=== PATIENT | female | born 1995 | race Caucasian/White ===

== ENCOUNTER 2024-02-26 09:45 | Outpatient (CLI) | payer BC, SELFPAY ==
--- NOTE | ~2024-02-26 | US_ITS ---
EXAMINATION: US OB follow up DATE: 02/26/2024 10:07 INDICATION: Encounter for supervision of normal . TECHNIQUE: Real-time ultrasound of the pelvis was performed. COMPARISON: Ultrasound 01/14/2024 FINDINGS: There is a single living fetus in vertex presentation. The placenta is anterior. heart rate is 141 beats per minute (bpm). The amniotic fluid index is 10.4 cm, which is normal. The following biometric data were obtained: Biparietal diameter (BPD): 9.4 cm; head circumference (HC): 33.1 cm; abdominal circumference (AC): 35 .3 cm; femur length (FL): 7.7 cm. These measurements are concordant. Estimated weight is 3634 g +/- 545 g, which correlates with the 77th percentile when 03/08/24 is used as estimated date of delivery. As single measurements, these parameters are each equal to the following estimated gestational ages: BPD: 38 weeks 1 days. HC: 37 weeks 5 days. AC: 39 weeks 2 days. FL: 39 weeks 2 days. estimated gestational age based solely on measurements from this exam is 38 weeks 4 days +/- 2 weeks 5 days. IMPRESSION: 1. Single living fetus in vertex presentation. 2. Estimated weight is 3634 g +/- 545 g, which correlates with the 77th percentile when 4 is used as estimated date of delivery. Reviewed, dictated and finalized at location A. IMPRESSION: 1. Single living fetus in vertex presentation. 2. Estimated weight is 3634 g +/- 545 g, which correlates with the 77th percentile when 03/08/24 is used as estimated date of delivery.
== END 2024-02-26 09:46 ==
LOC: GOSHIMG 09:46
PROVIDERS: Visit Provider Obstetrics & Gynecology
DX: Z34.93 Encounter for supervision of normal pregnancy, unspecified, third trimester (principal); Z3A.38 38 weeks gestation of pregnancy
CPT/HCPCS: 76816

== ENCOUNTER 2024-03-06 19:33 | Inpatient (IN) | payer BC, SELFPAY ==
[2024-03-06] VITALS (15 sets, daily range): BP systolic 117–147; BP diastolic 78–108; PULSE 76–102; BMI 36.3
--- NOTE | 2024-03-06 20:25 | LDADM ---
This patient, Kasey Santoyo, was admitted to Labor/Delivery/Recovery 107 on 03/06/24 at 19:33. Plans for labor, pain management and were discussed with patient. Patient/family oriented to hospital policies and general routines including ID bracelet, bed and alarms, visiting hours, pain management, procedures, bathroom and other care routines, personal items, smoking policy, room service/diet and guest tray routines, infant security routines, and visiting hours. Patient/Family are encouraged to report perceived risks to care and to ask questions if they do not understand what they are told or what they should do. See OBIX for further documentation.
[2024-03-06 20:27] LABS: Basophils Percent Auto 0.4 % (0.2-1.2); Eosinophils Absolute Auto 0.1 K/mm3 (0-0.3); Eosinophils Percent Auto 0.9 % (0-4.4); Hematocrit 34.8 % (37.0-47.0); Hemoglobin 11.9 g/dL (12.0-15.0); Immature Granulocyte Absolute 0.05 K/mm3 (0.00-0.031); Immature Granulocyte Percent A 0.6 % (0-0.5); Lymphocytes Absolute Auto 1.82 K/mm3 (0.9-3.2); Lymphocytes Percent Auto 21.5 % (18.3-44.2); Mean Corpuscular HGB Conc 34.2 g/dl (32-36); Mean Corpuscular Hemoglobin 30.8 pg (26-34); Mean Corpuscular Volume 90.2 fl (80-100); Mean Platelet Volume 9.5 fl (7.4-10.4); Monocytes Absolute Auto 1.1 K/mm3 (0.1-0.6); Neutrophils Absolute Auto 5.4 K/mm3 (1.3-6.7); Neutrophils Percent Auto 63.6 % (45.5-73.1); Platelet Count Result 265 k/mm3 (150-375); Red Blood Count 3.86 M/mm3 (4.2-5.4); Red Cell Distribution Width 12.5 % (11.5-14.5); White Blood Count 8.5 K/mm3 (4.5-10.0)
[2024-03-06 20:45] LABS: Rapid Plasma Reagin Non-Reactive (NonReactive)
[2024-03-06] MEDS: LACTATED RINGERS 1,000 ML 125 ML IV CONT (20:52)
[2024-03-06] MEDS: OXYTOCIN 30 UNITS/NS 500 ML 30 UNITS/500 ML BAG 6 UNITS IV CONT (20:54)
[2024-03-06] MEDS: AMPICILLIN 2 GM/NS 100 ML 2 GM/100 ML BAG IVPB (20:54)
[2024-03-06 21:15] LABS: HIV 1/2 Ab P24 Ag Result Negative (Negative)
--- NOTE | 2024-03-06 21:16 | PM.IMHP ---
H&P: HPI History of Present Illness Date/Time: 03/06/24 21:16 Chief Complaint: leakage of fluid Narrative: Kasey is a 28yo @ 39.5wks who presented to L&D with complaints of leakage of fluid at 1830, clear. She denies contractions, vaginal bleeding. She reports good movement. She has has regular care. Her is complicated by: - GBS positive Review of Systems Constitutional: Constitutional: Denies chills, Denies fever(s) and Denies headache(s) Eyes: Eyes: Denies change in vision ENT: Denies headache(s) Cardiovascular: Cardiovascular: Denies chest pain and Denies dyspnea Respiratory: Respiratory: Denies dyspnea Genitourinary: Genitourinary: Denies abnormal vaginal bleeding and Reports vaginal discharge Neurologic: Denies headache(s) Psychiatric: Psychiatric: Denies anxiety and Denies depression [facility] Past Medical History Medical History Encounter for IUD insertion (10/27/19) Khadra insertion Encounter for IUD removal Surgical History Surgical History History of gynecological procedure (11/25/22) khadra iud removal Family History Family History Other Breast cancer maternal uncle Father Hypertension Mother Cataract Sibling Seizures Social History Social History Smoking status: Never smoker Second hand tobacco smoke exposure: No Alcohol intake: former Drinks per week: 2 Substance use: never Substance use type: does not use Do You Feel Safe in your Home?: Yes Lack of Transportation: No Lack of Food: Never True Current Housing: I Have Housing Concerned About Future Housing: No Difficulty Paying Gas/Electric Bills: No Difficulty Paying for Meds: No Currently Unemployed: No Education: Master's Degree or Higher Difficulty w/ Childcare or Family Care: No Living arrangements: other Additional living arrangements comments: Occupation/Education: occupation Additional occupation/education comments: Teacher Gender identity (if verbalized by the patient): Female Sexual Orientation (if Verbalized by the Patient): Straight or Heterosexual Spiritual care concerns: No Meds Home Medications and Allergies Home Medications Medication Instructions Recorded Confirmed Type cetirizine 10 mg capsule (Zyrtec) 10 mg PO DAILY PRN 11/20/22 03/02/24 History vits no.126-ferrous fum tablet PO 08/01/23 03/02/24 History 28 mg iron-folic acid 800 mcg tablet (Classic ) famotidine 20 mg tablet (Pepcid) 20 mg PO QHS 01/07/24 03/02/24 History Allergies Allergy/AdvReac Type Severity Reaction Status Date / Time walnut Allergy Itching Verified 03/02/24 14:01 Vital Signs Vital Signs - 24 hr 03/06/24 20:17 03/06/24 20:31 03/06/24 20:46 Pulse Rate 90 102 H 80 Blood Pressure 128/88 134/93 H 129/88 Oxygen Delivery 03/06/24 19:35 Pulse Rate Blood Pressure Oxygen Delivery Room Air Exam Const: General: cooperative, healthy appearing, comfortable, no acute distress and obese Nutritional Appearance: obese Orientation/consciousness: patient oriented x3 Resp: Effort & Inspection: normal respiratory effort Cardio: Rate: regular rate GI: GI Palp: No abdominal tenderness : Other: FHT's: 130's/ mod vonnie/ + accels/ no decels - cat 1 TOCO: irregualr ctxs Cervix: 2.5/50/-2 Membranes: SROM, clear 1830 Presentation: cephalic Skin: General skin exam: normal color Neuro: General: patient oriented x3 Extrem: General: normal to inspection Psych: Appearance: grossly normal Affect: normal affect Attitude: cooperative H&P: Results Labs Labs: Short CBC 03/06/24 Range/Units 20:21 WBC 8.5 (4.5-10.0) K/mm3 Hgb 11.9 L (12.0-15.0) g/dL Hct 34.8
[2024-03-07] VITALS (135 sets, daily range): BP systolic 114–169; BP diastolic 62–135; PULSE 76–188; RESP 16–18; TEMP 36.3–37.9; O2SAT 93–100
--- NOTE | 2024-03-07 00:34 | WPDANESEPP ---
Anes - Eval Pre Procedure Procedure: labor epidural Date/Time: 03/07/24 00:34 Pre Op Diagnosis: IOL Patient Data Age: 28 Gender: F Height: 1.63 m Weight: 96 kg Last Vital Signs Pulse 87 03/07/24 00:31 BP 123/86 03/07/24 00:31 Pulse Ox 96 03/07/24 00:33 O2 Del Method Room Air 03/06/24 19:35 Allergies Allergy/AdvReac Type Severity Reaction Status Date / Time walnut Allergy Itching Verified 03/02/24 14:01 Home Medications Medication Instructions Recorded Confirmed Type cetirizine 10 mg capsule (Zyrtec) 10 mg PO DAILY PRN 11/20/22 03/02/24 History vits no.126-ferrous fum tablet PO 08/01/23 03/02/24 History 28 mg iron-folic acid 800 mcg tablet (Classic ) famotidine 20 mg tablet (Pepcid) 20 mg PO QHS 01/07/24 03/02/24 History Laboratory Tests 03/06/24 03/06/24 20:19 20:21 WBC 8.5 K/mm3 (4.5-10.0) RBC 3.86 L M/mm3 (4.2-5.4) Hgb 11.9 L g/dL (12.0-15.0) Hct 34.8 L % (37.0-47.0) MCV 90.2 fl (80-100) MCH 30.8 pg (26-34) MCHC 34.2 g/dl (32-36) RDW 12.5 % (11.5-14.5) Plt Count 265 k/mm3 (150-375) MPV 9.5 fl (7.4-10.4) Immature Gran % (Auto) 0.6 H % (0-0.5) Neut % (Auto) 63.6 % (45.5-73.1) Lymph % (Auto) 21.5 % (18.3-44.2) [place] % (Auto) 13.0 H % (2.6-8.5) Eos % (Auto) 0.9 % (0-4.4) Baso % (Auto) 0.4 % (0.2-1.2) Lymph # (Auto) 1.82 K/mm3 (0.9-3.2) [place] # (Auto) 1.1 H K/mm3 (0.1-0.6) Eos # (Auto) 0.1 K/mm3 (0-0.3) Baso # (Auto) 0.0 K/mm3 (0.0-0.1) Abs Immat Gran (auto) 0.05 H K/mm3 (0.00-0.031) Absolute Neuts (auto) 5.4 K/mm3 (1.3-6.7) Absolute Nucleated RBC 0.000 K/mm3 (0.0-0.012) Nucleated RBC % 0.0 % (0.0-0.2) RPR Non-reactive (NonReactive) HIV 1&2 Ab/P24 Ag 4thGn Negative (Negative) Blood Type O Positive Antibody Screen Negative Patient hx anesthesia problems: none Family hx anesthesia problems: none Results Review: All pre-operative results and documents have been reviewed as part of the pre-operative evaluation. [facility] Past Medical History Medical History Encounter for IUD insertion (10/27/19) Dariusz insertion Encounter for IUD removal Surgical History Surgical History History of gynecological procedure (11/25/22) dariusz iud removal Family History Family History Other Breast cancer maternal uncle Father Hypertension Mother Cataract Sibling Seizures Social History Social History Smoking status: Never smoker Second hand tobacco smoke exposure: No Alcohol intake: former Drinks per week: 2 Substance use: never Substance use type: does not use Do You Feel Safe in your Home?: Yes Lack of Transportation: No Lack of Food: Never True Current Housing: I Have Housing Concerned About Future Housing: No Difficulty Paying Gas/Electric Bills: No Difficulty Paying for Meds: No Currently Unemployed: No Education: Master's Degree or Higher Difficulty w/ Childcare or Family Care: No Living arrangements: other Additional living arrangements comments: Occupation/Education: occupation Additional occupation/education comments: Teacher Gender identity (if verbalized by the patient): Female Sexual Orientation (if Verbalized by the Patient): Straight or Heterosexual Spiritual care concerns: No Exam Day of Procedure 03/07/24 00:34 Patient weight: obese Heart: regular rate and rhythm Lungs: normal air movement Airway: Mallampati scale Neurological: alert and oriented
[2024-03-07] MEDS: LACTATED RINGERS 1,000 ML 125 ML IV CONT (00:45)
[2024-03-07] MEDS: AMPICILLIN 1 GM/NS 50 ML 1 GM/50 ML BAG IVPB (01:29)
[2024-03-07] MEDS: FAMOTIDINE 20 MG/2 ML VIAL IV PUSH (02:14)
[2024-03-07] MEDS: miSOPROStol 200 MCG TABLET 800 MCG RECTAL (07:45)
[2024-03-07] MEDS: OXYTOCIN 30 UNITS/NS 500 ML 30 UNITS/500 ML BAG 125 UNITS IV CONT (08:18)
--- NOTE | 2024-03-07 08:53 | PM.OBPRVD ---
OB - Vaginal Delivery Note Procedure Delivery date: 03/07/24 Events: Positive Group B Strep (GBS) and Other (SROM) Delivery augmentation: Pitocin Delivery monitor: External FHT and External Uterine Route of delivery: Episiotomy description: None Laceration Description: Perineal - 2nd Degree and Vaginal Delivery repair: vicryl Specimen: Yes (placenta) Quantitative Blood Loss (ml): 600 Anesthesia type: Epidural Disposition: Floor Complications: No immediate complications Baby Date of : 03/07/24 Time of : 07:37 Gestational Age by Date: 39 (.6) gender: Female presentation: vertex Placenta delivery description: Expressed Cord Vessel Description: 3 Vessels, Nuchal Cord, Loose and Delayed Cord Clamping score one minute: 8 score five minutes: 9 Narrative: Kasey progressed to complete dilation with strong desire to push. She pushed for approximately 3 hours with good maternal effort. She delivered the head perineum. Nuchal cord was palpated but loose and delivered through. She easily delivered the 's shoulders and body without complication. The was immediately placed skin to skin and had spontaneous cry. Delayed cord clamping was performed. The umbilical cord was doubly clamped and cut. A segment of the cord was collected for cord gases. The remaining cord blood was collected for typing. With Pitocin running and gentle downward traction on the cord, the placenta delivered without complications. Brisk bleeding was then noted and slight uterine atony was palpated. The atony did improve with bimanual massage but Cytotec 800 mcg was placed rectally. She was examined and was found to have a vaginal laceration that extended into the left labia majora as well as a second-degree perineal laceration. It was repaired in the normal fashion using 2-0 Vicryl and reapproximated well with good hemostasis. Bimanual massage was once again performed and a small amount of clots were removed but good uterine tone was then noted. Sponge, lap, instrument, and needle counts were correct at the end the procedure. Mom and baby were left bonding in the birthing suite in stable condition.
[2024-03-07] MEDS: WITCH HAZEL 40 PADS 1 PAD TOPICAL (10:20)
[2024-03-07] MEDS: BENZOCAINE 20% AER SPR (*SP) 56 GM CAN 1 SPRAY TOPICAL (10:20)
--- NOTE | 2024-03-07 10:40 | OBPPTRN ---
Patient transferred to post room #285 via wheelchair. Support person present. Oriented to unit, room, information board, rooming in, admission packet and security measures. Patient verbalizes understanding.
[2024-03-07] MEDS: DOCUSATE SODIUM 100 MG CAPSULE PO (11:02)
[2024-03-07] MEDS: MULTIVIT/MIN/PREN/FOL AC/IRON TABLET 1 TAB PO (11:02)
[2024-03-07] MEDS: IBUPROFEN 600 MG TABLET PO ×2 (11:03→23:30)
[2024-03-08] VITALS: BP 130/88; PULSE 108; RESP 20; TEMP 36.6; O2SAT 99
[2024-03-08 04:38] LABS: Hematocrit 25.3 % (37.0-47.0); Hemoglobin 8.7 g/dL (12.0-15.0); Mean Corpuscular HGB Conc 34.4 g/dl (32-36); Mean Platelet Volume 9.8 fl (7.4-10.4); Platelet Count Result 218 k/mm3 (150-375); Red Blood Count 2.72 M/mm3 (4.2-5.4); White Blood Count 11.1 K/mm3 (4.5-10.0)
[2024-03-08 04:54] LABS: Alanine Aminotransferase 12 U/L (6-35); Albumin Level 2.5 g/dL (3.5-5.1); Alkaline Phosphatase 123 U/L (38-126); Anion Gap 7 mmol/L (4-12); Aspartate Amino Transferase 48 U/L (14-36); Bilirubin,Total 0.2 mg/dL (0.2-1.3); Blood Urea Nitrogen 7 mg/dL (7-17); Calcium 8.2 mg/dL (8.4-10.2); Carbon Dioxide 19 mmol/L (22-30); Chloride 108 mmol/L (98-107); Estimated CRCL calculation 154 ml/min; Estimated Glomerular Filt Rate > 60; Glucose 97 mg/dL (65-110); Potassium 3.5 mmol/L (3.4-5.0); Sodium 134 mmol/L (137-145)
--- NOTE | 2024-03-08 07:15 | PM.OBPNVD ---
OB - PN: Subj Subjective Date/time seen: 03/08/24 07:12 Narrative: PPD#1 Kasey reports doing well today. Her bleeding is diamond setter. Her pain is controlled. She is tolerating regular diet, voiding, passing gas, and ambulating without issues. She is breast feeding. OB - PN: Obj Data Labs 03/08/24 03:52 03/08/24 03:52 Labs: Laboratory Results - last 24 hr 03/06/24 03/06/24 20:19 20:21 WBC 8.5 RBC 3.86 L Hgb 11.9 L Hct 34.8 L MCV 90.2 MCH 30.8 MCHC 34.2 RDW 12.5 Plt Count 265 MPV 9.5 Immature Gran % (Auto) 0.6 H Neut % (Auto) 63.6 Lymph % (Auto) 21.5 [place] % (Auto) 13.0 H Eos % (Auto) 0.9 Baso % (Auto) 0.4 Lymph # (Auto) 1.82 [place] # (Auto) 1.1 H Eos # (Auto) 0.1 Baso # (Auto) 0.0 Abs Immat Gran (auto) 0.05 H Absolute Neuts (auto) 5.4 Absolute Nucleated RBC 0.000 Nucleated RBC % 0.0 RPR Non-reactive HIV 1&2 Ab/P24 Ag 4thGn Negative Blood Type O Positive Antibody Screen Negative OB - PN A/P Assessment and Plan (1) Normal vaginal delivery of first : Code(s): O80 - Encounter for full-term uncomplicated delivery Status: Acute Plan day: 1 Plan: routine care Comments: - PP temp of 100.3 noted x1; pt had two doses of amp during labor, was ruptured 13 hours; had dose of cytotec after delivery, will continue to monitor closely. If any temp >100.4, will start antibiotics for chorio. Afebrile overnight, WBC of 11 - Venofer 400mg IV once - PO pain meds - Regular diet - Ambulation and hydration encouraged - Continue putting baby to breast q2-3hr Time Spent With Patient Time: Total time spent is greater than 50% in coordination of care (as documented) at patient's floor/unit and/or counseling patient: Review of Systems Constitutional: Constitutional: Denies chills, Denies fever(s) and Denies headache(s) Eyes: Eyes: Denies change in vision ENT: Denies dizziness and Denies headache(s) Cardiovascular: Cardiovascular: Denies chest pain, Denies palpitations and Denies dyspnea Respiratory: Respiratory: Denies cough and Denies dyspnea Gastrointestinal: Gastrointestinal: Denies nausea and Denies vomiting Neurologic: Denies dizziness and Denies headache(s) Endocrine: Endocrine: Denies palpitations Exam Const: General: cooperative, comfortable and no acute distress Orientation/consciousness: patient oriented x3 Resp: Effort & Inspection: normal respiratory effort Auscultation: clear to auscultation bilaterally Cardio: Rate: regular rate GI: Inspection: non-distended GI Palp: No abdominal tenderness and Yes Soft to palpation Auscultation: normal bowel sounds : Other: fundus firm Skin: General skin exam: normal color Neuro: General: patient oriented x3 Extrem: General: normal to inspection Psych: Appearance: grossly normal Affect: normal affect Attitude: cooperative
[2024-03-08] MEDS: IRON SUCROSE COMPLEX 400 MG in SODIUM CHLORIDE 0.9% IV 250 ML 108 MG IVPB (07:59)
[2024-03-08 08:00] VITALS: BP 122/86; PULSE 92; RESP 16; TEMP 37; O2SAT 99
[2024-03-08] MEDS: MULTIVIT/MIN/PREN/FOL AC/IRON TABLET 1 TAB PO (09:22)
[2024-03-08] MEDS: POLYSACCHARIDE IRON COMPLEX 150 MG CAPSULE PO (09:22)
[2024-03-08] MEDS: DOCUSATE SODIUM 100 MG CAPSULE PO (09:25)
[2024-03-08] MEDS: IBUPROFEN 600 MG TABLET PO (09:25)
--- NOTE | 2024-03-08 10:00 | PC.NURSE ---
Addendum entered by Michelle Smith RN 03/08/24 12:07: continued from 1050 note: Mother is confident latching baby. Parents verbalized understanding of the information shared. She will call for further assistance today as needed. Reported to Primary RN. Original Note: 1000: To patient room to assess needs and it is time to feed now. Baby is sleeping and parents were starting to wake her up. We undressed her and she gave some feeding cues. Mother positioned her in football on the left breast. Baby gave a few open mouths and attempted a little to latch, but would not suck and seemed sleepy still. We tried for about 10 minutes, mom does an excellent job waiting for a wide open mouth before bringing baby in to the breast. She seems very knowledgeable about how to latch baby. We will try again in 30 minutes or if baby shows feeding cues. Reported to Primary RN. 1050: Mother called out because baby was latched and feeding. Primary RN was in room and saw the latch on the left breast. Mother states infant was pinching on that side so they switched to the right breast in cross cradle hold. Baby was latch and nursing. Mom declines pain. Baby has brief pauses off and on and mom encourages baby to stay awake. Reviewed signs of a deep latch, breaking suction and relatching if it doesn't feel correct. and
--- NOTE | 2024-03-08 14:45 | WPDANLDPN2 ---
Anes-Prog Note L&D Date/Time: 03/08/24 14:45 Comfortable throughout: labor and delivery Neuraxial method: epidural Epidural/Spinal procedure site: clean & non-tender Neuro status: Neuro function grossly intact. Cardiovascular status: normal Respiratory status: normal Airway patency: baseline Mental status: baseline Post-Op hydration status: normal Vital Signs: Last Vital Signs Temp 37.0 C 03/08/24 08:00 Pulse 92 03/08/24 08:00 Resp 16 03/08/24 08:00 BP 122/86 03/08/24 08:00 Pulse Ox 99 03/08/24 08:00 O2 Del Method Room Air 03/08/24 08:00 Pain score (VAS): 0 I/O: Intake & Output 03/07/24 03/08/24 03/08/24 23:59 07:59 15:59 Intake Total 480 Balance 480 Post-procedural complaints: none Patient feedback: Patient satisfied with anesthetic care.
[2024-03-08 19:32] VITALS: BP 125/80; PULSE 100; RESP 18; TEMP 36.6; O2SAT 99
[2024-03-09 07:50] VITALS: BP 132/86; PULSE 96; RESP 18; TEMP 37; O2SAT 99
[2024-03-09] MEDS: DOCUSATE SODIUM 100 MG CAPSULE PO (08:01)
[2024-03-09] MEDS: MULTIVIT/MIN/PREN/FOL AC/IRON TABLET 1 TAB PO (08:01)
--- NOTE | 2024-03-09 08:22 | PM.OBDSVD ---
DS: Admitting Diagnosis Discharge Date 03/09/24 Admitting Diagnosis SROM DS: Discharge Diagnosis Discharge Diagnosis (1) Normal vaginal delivery of first : Code(s): O80 - Encounter for full-term uncomplicated delivery Status: Acute OB - DS: Summary OB Procedures : Ultrasound OB Procedures Intrapartum: Spontaneous Vag Delivery OB Procedures: : Other (Venofer 400mg IV once) Peripartum Data Infant Delivery Method: Natural Vaginal Laceration Description: Perineal - 2nd Degree and Vaginal Episiotomy description: None complications: none 1: Gender: Female Disposition of : home Status at Discharge Functional status at discharge: independent ambulation Overall status at discharge: patient is back to baseline Time Spent with Patient Time attestation: Total time spent providing and/or coordinating discharge services: Exam Const: General: cooperative, healthy appearing, comfortable and no acute distress Nutritional Appearance: obese Orientation/consciousness: patient oriented x3 Resp: Effort & Inspection: normal respiratory effort Auscultation: clear to auscultation bilaterally Cardio: Rate: regular rate GI: Inspection: non-distended GI Palp: No abdominal tenderness and Yes Soft to palpation Auscultation: normal bowel sounds : Other: fundus firm Skin: General skin exam: normal color Neuro: General: patient oriented x3 Extrem: General: normal to inspection Psych: Appearance: grossly normal Affect: normal affect Attitude: cooperative DS: Data Data Completed and Pending Pending studies at discharge: Pending at discharge 03/07/24 07:42 Surgical [PTH] Routine Labs on day of discharge: Labs from last 24 hours 03/08/24 03:52 WBC 11.1 H RBC 2.72 L Hgb 8.7 L D Hct 25.3 L MCV 93.0 MCH 32.0 MCHC 34.4 RDW 13.0 Plt Count 218 MPV 9.8 Sodium 134 L Potassium 3.5 Chloride 108 H Carbon Dioxide 19 L Anion Gap 7 BUN 7 Creatinine 0.50 L Estim Creat Clear Calc 154 Estimated GFR > 60 Glucose 97 Calcium 8.2 L Total Bilirubin 0.2 AST 48 H ALT 12 Alkaline Phosphatase 123 Total Protein 5.0 L Albumin 2.5 L Discharge Plan Discharge Attending physician on discharge: Rosalind Celestin Discharging Clinician: Rosalind Celestin Patient Disposition: Home, Self-Care Activity: may shower and pelvic rest Diet: regular Patient Instructions: Perineal Tear with Delivery (DC), Vaginal Delivery (DC) Stand Alone Forms: General Discharge Information Follow-up/Referrals: Rosalind Celestin MD [Physician] - 4 Weeks Discharge Medications: New docusate sodium 100 mg Capsule 100 mg PO BID PRN (Reason: Constipation) Qty: 90 0RF ibuprofen 600 mg Tablet 600 mg PO Q6H PRN (Reason: Cramping) Qty: 40 0RF acetaminophen 500 mg tablet 1,000 mg PO TID Qty: 60 0RF Continued Zyrtec 10 mg capsule 10 mg PO DAILY PRN Classic 28 mg iron- 800 mcg tablet PO famotidine [Pepcid] 20 mg tablet 20 mg PO QHS Date of admission: 03/06/24 19:33 Primary Care Provider: PHYSICIAN,TOWEL STRETCHER Admitting Provider: Agustin Galeana Attending physician on admission: Agustin Galeana Condition: Stable
--- NOTE | 2024-03-09 10:14 | PC.NURSE ---
Patient viewed the discharge video Mother & Baby Care, The First Two Weeks . Patient was given the opportunity and encouraged to ask questions. Patient verbalized understanding of information shared and has been given the mother/baby guide for home reference.
[2024-03-10 11:14] VITALS: BP 126/84; PULSE 92; RESP 18; TEMP 36.7; O2SAT 100
== END 2024-03-09 12:30 | disposition home or self-care (01) | DRG 807 ==
LOC: ANHLDR 23:38 → ANHOB2 03-07 20:26 → ANHLDR 03-10 09:15
PROVIDERS: Admitting Provider Obstetrics & Gynecology; Visit Provider Obstetrics & Gynecology
DX: O99.824 Streptococcus B carrier state complicating childbirth (principal); Z37.0 Single live birth; Z3A.39 39 weeks gestation of pregnancy; O70.1 Second degree perineal laceration during delivery; O69.81X0 Labor and delivery complicated by cord around neck, without compression, not applicable or unspecified
CPT/HCPCS: 36415; 80053; 85025; 85027; 86592; 86703; 86850; 86900; 86901; 88307; A9270; G0432; J0290; J1756; J2590; J2795; J7050; J7120